=== PATIENT | female | born 1980 | race Caucasian/White ===

== ENCOUNTER 2016-12-06 08:00 | Outpatient (CLI) | payer BC, OTHER ==
[2016-12-06 19:15] LABS: BASOPHILS % (AUTO) 0.4 %; EOSINOPHILS # (AUTO) 0.1 10^3/uL (0.0-0.7); EOSINOPHILS % (AUTO) 0.9 %; HCT - HEMATOCRIT 42.2 % (37.0-47.0); HGB - HEMOGLOBIN 14.4 g/dL (12.0-16.0); LYMPHOCYTES # (AUTO) 2.3 10^3/uL (1.5-3.5); MEAN CORPUSCULAR HEMOGLOBIN 30.6 pg (27.0-31.0); MEAN CORPUSCULAR HGB CONC 34.1 g/dL (32.0-36.0); MEAN CORPUSCULAR VOLUME 89.8 fL (81.0-99.0); MEAN PLATELET VOLUME 9.1 fL (7.9-10.8); MONOCYTES # (AUTO) 0.6 10^3/uL (0.0-1.0); NEUTROPHILS # (AUTO) 4.9 10^3/uL (1.5-6.6); NEUTROPHILS % (AUTO) 61.7 %; NUCLEATED RED BLOOD CELLS AUTO 0.1 /100WBC; RED BLOOD COUNT 4.69 10^6/uL (4.20-5.40); RED CELL DISTRIBUTION WIDTH 13.1 % (12.0-15.0)
[2016-12-06 20:18] LABS: ALBUMIN/GLOBULIN RATIO 1.6 (1.0-2.2); BILIRUBIN,TOTAL 0.6 mg/dL (0.2-1.0); BUN - BLOOD UREA NITROGEN 16 mg/dL (6-20); CALCIUM 9.6 mg/dL (8.5-10.3); CARBON DIOXIDE - CO2 29 mmol/L (21-32); CHLORIDE 102 mmol/L (101-111); CREATININE 0.6 mg/dL (0.4-1.0); GFR - MDRD 114 (>89); GLUCOSE 100 mg/dL (70-100); POTASSIUM 4.1 mmol/L (3.5-5.0); SODIUM 139 mmol/L (135-145); TOTAL PROTEIN 7.1 g/dL (6.7-8.2)
== END 2016-12-06 08:01 | disposition home or self-care (01) ==
LOC: LAB.WCP 08:00
PROVIDERS: ATTEND Physician Assistant Medical
DX: L50.8 Other urticaria (principal)
CPT/HCPCS: 36415; 80053; 84443; 85025

== ENCOUNTER 2020-01-12 07:00 | Outpatient (CLI) | payer OTHER ==
--- NOTE | 2020-01-12 11:00 | XRAY Report ---
PROCEDURE: Thoracic Spine 2 View INDICATIONS: C AND T SPINE PAIN TECHNIQUE: 3 views of the thoracic spine were acquired. COMPARISON: Correlation is made with the accompanying cervical spine plain films, 01/12/2020. FINDINGS: Bones: No fractures or dislocations. No suspicious bony lesions. 11 pairs of ribs are noted, and a ppear intact where visualized. Soft tissues: No paravertebral stripe thickening. Postoperative clips can be seen within the region of a shoulder on the swimmer's view. IMPRESSION: No acute thoracic abnormality is seen. Note is made of only 11 pairs of ribs. Reviewed by: Antonio Sahu MD on 01/12/2020 9:58 AM [facility] Approved by: Antonio Sahu MD on 01/12/2020 9:58 AM [facility] Station ID: [id number]
--- NOTE | 2020-01-12 11:01 | XRAY Report ---
PROCEDURE: Cervical Spine 2 View INDICATIONS: NECK AND BACK PAIN TECHNIQUE: 3 view(s) of the cervical spine were acquired. COMPARISON: 12/02/2017. Correlation is also made with the accompanying thoracic spine plain films, 1 03/13/2019. FINDINGS: Bones: No fractures or dislocations to the T1 level. The lateral masses of C1 appear intact on the odontoid view. No suspicious bony lesions. Soft tissues: No prevertebral soft tissue swelling. The visualized pulmonary apices are unremarkab le. IMPRESSION: Normal cervical spine plain films. Reviewed by: Antonio Sahu MD on 01/12/2020 9:59 AM [facility] Approved by: Antonio Sahu MD on 01/12/2020 9:59 AM [facility] Station ID: [id number]
== END 2020-01-12 23:59 | disposition home or self-care (01) ==
LOC: DI.N 07:00
PROVIDERS: ATTEND Family Medicine
DX: M54.2 Cervicalgia (principal)
CPT/HCPCS: 72040; 72070

== ENCOUNTER 2020-02-07 14:50 | Outpatient (CLI) | payer OTHER | END 2020-02-07 23:59 | disposition home or self-care (01) | LOC: COV 14:50 | PROVIDERS: ATTEND Family Medicine | DX: R50.9 Fever, unspecified (principal); Z20.828 Contact with and (suspected) exposure to other viral communicable diseases; R06.02 Shortness of breath; R53.83 Other fatigue; J02.9 Acute pharyngitis, unspecified; R19.7 Diarrhea, unspecified; R43.9 Unspecified disturbances of smell and taste; R09.81 Nasal congestion; R11.2 Nausea with vomiting, unspecified ==

== ENCOUNTER 2021-12-09 09:37 | Outpatient (CLI) | payer BC ==
--- NOTE | 2021-12-09 12:22 | XRAY Report ---
PROCEDURE: Knee 3 View LT INDICATIONS: L KNEE PX TECHNIQUE: 3 views of the left knee(s) were acquired. COMPARISON: None. FINDINGS: Bones: No fractures or dislocations. No suspicious bony lesions. Minimal medial compartment narrow ing. There is slight appearance of lucency within the superior patella seen only on lateral view. No priors are valve for comparison. Soft tissues: Mild/moderate joint effusion. No suspicious soft tissue calcifications. IMPRESSION: Mild to moderate effusion. No visualized acute fracture or dislocation. However, occult injury cannot be excluded. Recommend short interval imaging follow-up in 7-10 days as clinically indicated for add itional evaluation. Slight appearance of lucency within the superior patella only seen on lateral view. This could be art ifactual no priors are available for comparison. Patellar views are recommended to exclude presence o f potential erosion or other osseous lesion. Reviewed by: Jennifer Galvez MD on 12/09/2021 12:20 PM PDT Approved by: Jennifer Galvez MD on 12/09/2021 12:20 PM PDT Station ID: [id number]
== END 2021-12-09 09:38 | disposition home or self-care (01) ==
LOC: DI.N 09:37
PROVIDERS: ATTEND Physician Assistant Medical
DX: M25.562 Pain in left knee (principal); M25.462 Effusion, left knee